=== PATIENT | male | born 1960 | race Caucasian/White ===

== ENCOUNTER 2020-12-09 07:34 | Inpatient (IN) ==
[2020-12-09] MEDS ORDERED: Isovue-370 500 ML BOTTLE IVP ONE (07:48)
[2020-12-09] MEDS ORDERED: Ipratropium/Albuterol Neb 3 ML IH ONE (07:49)
[2020-12-09 08:08] LABS: Basophils # 0.1 K/mcL (0.0-0.2); Basophils % 0.5 %; Eosinophils # 0.1 K/mcL (0.0-0.6); Hemoglobin 16.3 g/dL (12.9-16.9); Immature Granulocytes % 0.3 % (0-4); Lymphocytes # 1.9 K/mcL (0.6-4.6); Lymphocytes % 17.4 %; Mean Corpuscular HGB Conc 33.3 g/dL (31.6-35.5); Mean Corpuscular Hemoglobin 32.7 pg (28.0-33.3); Mean Corpuscular Volume 98.2 fL (83.0-100.0); Mean Platelet Volume 10.5 fL (9.4-12.4); Monocytes # 0.4 K/mcL (0.0-1.3); Monocytes % 3.8 %; Neutrophils # 8.4 K/mcL (1.6-8.9); Nucleated Red Blood Cells 0.2 /100 WBC (0); Platelet Count 292 K/mcL (140-400); Red Blood Count 4.99 M/mcL (4.19-5.50); Red Cell Distribution Width 14.8 % (11.5-14.5); White Blood Count 10.9 K/mcL (4.3-11.1)
[2020-12-09] MEDS ORDERED: 0.9 % Sodium Chloride 500 ML IVC ONE (08:26)
[2020-12-09] MEDS ORDERED: levoFLOXacin 750 MG/150 ML 750 MG/150 ML BAG IVPB ONE (08:29)
[2020-12-09 08:30] LABS: BUN/Creatinine Ratio 14 (6-26); Blood Urea Nitrogen 16 mg/dL (8-23); Calcium 9.8 mg/dL (8.6-10.3); Carbon Dioxide 21 mEq/L (23-29); Chloride 101 mEq/L (98-107); Glucose 180 mg/dL (70-105); Osmolality,Calculated 280 (280-300); Potassium 4.5 mEq/L (3.5-5.1); Sodium 132 mEq/L (136-145); Troponin I < 0.03 ng/mL (< 0.04); eGFR For African Americans > 60 (> 60); eGFR For Non-African Americans > 60 (> 60)
[2020-12-09] MEDS ORDERED: Naloxone 0.4 MG/ML INJ IVP PRN (09:42)
[2020-12-09] MEDS ORDERED: 0.9 % Sodium Chloride 1,000 ML IVC ONE (09:42)
[2020-12-09] MEDS ORDERED: Ondansetron 4 MG/2 ML VIAL IVP PRN (09:42)
[2020-12-09] MEDS ORDERED: Furosemide 20 MG/2 ML VIAL IVP ONE ×2 (10:45→19:46)
[2020-12-09] MEDS ORDERED: Perflutren Lipid Microsphere 1.3 ML in 0.9 % Sodium Chloride 8.7 ML IVP PRN (10:45)
[2020-12-09] MEDS ORDERED: hydrOXYzine pamoate 25 MG CAPSULE PO PRN (14:36)
[2020-12-09] MEDS: *HR* Rivaroxaban 10 MG TABLET PO SCH (16:11)
[2020-12-09] MEDS: Bumetanide 1 MG/4 ML VIAL IVP SCH (16:11)
[2020-12-09] MEDS ORDERED: methylPREDNISolone 125 MG/2 ML VIAL IVP ONE (16:42)
[2020-12-09] MEDS: Ipratropium/Albuterol Neb 3 ML IH SCH ×2 (18:16→20:29)
[2020-12-09] MEDS: *HR* Amiodarone 200 MG TABLET PO SCH (20:54)
[2020-12-09] MEDS: Metoprolol XL (24 HR) Succ 50 MG TAB.ER.24H PO SCH (20:54)
[2020-12-09] MEDS: MethylPREDNISolone 40 MG/ML VIAL IVP SCH (23:36)
[2020-12-10] MEDS: Ipratropium/Albuterol Neb 3 ML IH SCH ×7 (00:19→23:02)
[2020-12-10 02:31] LABS: Hemoglobin 17.6 g/dL (12.9-16.9); Mean Corpuscular HGB Conc 33.8 g/dL (31.6-35.5); Mean Corpuscular Hemoglobin 33.3 pg (28.0-33.3); Mean Corpuscular Volume 98.3 fL (83.0-100.0); Mean Platelet Volume 10.4 fL (9.4-12.4); Platelet Count 307 K/mcL (140-400); Red Blood Count 5.29 M/mcL (4.19-5.50); Red Cell Distribution Width 14.6 % (11.5-14.5); White Blood Count 7.4 K/mcL (4.3-11.1)
[2020-12-10 02:47] LABS: BUN/Creatinine Ratio 20 (6-26); Blood Urea Nitrogen 22 mg/dL (8-23); Calcium 10.3 mg/dL (8.6-10.3); Carbon Dioxide 23 mEq/L (23-29); Chloride 101 mEq/L (98-107); Glucose 163 mg/dL (70-105); Magnesium 2.2 mg/dL (1.6-2.6); Osmolality,Calculated 283 (280-300); Potassium 4.9 mEq/L (3.5-5.1); Sodium 133 mEq/L (136-145); eGFR For African Americans > 60 (> 60); eGFR For Non-African Americans > 60 (> 60)
[2020-12-10] MEDS ORDERED: *HR* Enoxaparin 40 MG/0.4 ML SYRINGE SQ SCH (07:00)
[2020-12-10] MEDS: MethylPREDNISolone 40 MG/ML VIAL IVP SCH ×3 (08:24→17:39)
[2020-12-10] MEDS: Metoprolol XL (24 HR) Succ 50 MG TAB.ER.24H PO SCH ×2 (11:05→19:47)
[2020-12-10] MEDS: *HR* Amiodarone 200 MG TABLET PO SCH ×2 (11:06→19:47)
[2020-12-10] MEDS: Spironolactone 25 MG TABLET PO SCH (11:08)
[2020-12-10] MEDS: levoFLOXacin 750 MG/150 ML 750 MG/150 ML BAG IVPB SCH (11:08)
[2020-12-10] MEDS: Bumetanide 1 MG/4 ML VIAL IVP SCH ×2 (11:18→17:39)
[2020-12-10] MEDS: Acetaminophen 325 MG TABLET PO PRN ×2 (11:45→21:06)
[2020-12-10 15:50] LABS: ABG Base Excess 0 mEq/L (-2 to 3); ABG HCO3 24 mEq/L (21-27); ABG Oxygen Saturation 97 % (95-98); ABG PCO2 37 mmHg (35-45); ABG PH 7.42 pH Units (7.32-7.45); ABG PO2 89 mmHg (85-104); ABG TCO2 25 mEq/L (20-26)
[2020-12-10] MEDS: *HR* Rivaroxaban 10 MG TABLET PO SCH (17:39)
[2020-12-10] MEDS ORDERED: Ibuprofen 400 MG TABLET PO PRN (22:34)
[2020-12-11] MEDS: MethylPREDNISolone 40 MG/ML VIAL IVP SCH ×4 (00:09→23:14)
[2020-12-11] MEDS: Ipratropium/Albuterol Neb 3 ML IH SCH ×6 (04:03→23:19)
[2020-12-11 08:37] LABS: Basophils % 0.1 %; Hematocrit 51.1 % (37.5-50.1); Hemoglobin 17.2 g/dL (12.9-16.9); Immature Granulocytes % 0.6 % (0-4); Lymphocytes # 1.1 K/mcL (0.6-4.6); Lymphocytes % 6.4 %; Mean Corpuscular HGB Conc 33.7 g/dL (31.6-35.5); Mean Corpuscular Hemoglobin 33.4 pg (28.0-33.3); Mean Corpuscular Volume 99.2 fL (83.0-100.0); Mean Platelet Volume 10.7 fL (9.4-12.4); Monocytes # 0.5 K/mcL (0.0-1.3); Neutrophils # 15.2 K/mcL (1.6-8.9); Platelet Count 361 K/mcL (140-400); Red Blood Count 5.15 M/mcL (4.19-5.50); Red Cell Distribution Width 14.6 % (11.5-14.5); Segmented Neutrophils % 89.9 %
[2020-12-11 08:41] LABS: White Blood Count 16.9 K/mcL (4.3-11.1)
[2020-12-11] MEDS: Bumetanide 1 MG/4 ML VIAL IVP SCH ×2 (08:52→17:17)
[2020-12-11] MEDS: *HR* Amiodarone 200 MG TABLET PO SCH ×2 (08:53→20:26)
[2020-12-11] MEDS: Acetaminophen 325 MG TABLET PO PRN (08:54)
[2020-12-11] MEDS: Metoprolol XL (24 HR) Succ 50 MG TAB.ER.24H PO SCH ×2 (08:54→20:24)
[2020-12-11] MEDS: Spironolactone 25 MG TABLET PO SCH (08:54)
[2020-12-11 09:23] LABS: BUN/Creatinine Ratio 34 (6-26); Blood Urea Nitrogen 34 mg/dL (8-23); Calcium 10.6 mg/dL (8.6-10.3); Carbon Dioxide 23 mEq/L (23-29); Chloride 102 mEq/L (98-107); Glucose 133 mg/dL (70-105); Magnesium 2.2 mg/dL (1.6-2.6); Osmolality,Calculated 288 (280-300); Phosphorous 3.6 mg/dL (2.7-4.5); Potassium 4.5 mEq/L (3.5-5.1); Sodium 134 mEq/L (136-145); eGFR For African Americans > 60 (> 60); eGFR For Non-African Americans > 60 (> 60)
[2020-12-11] MEDS: levoFLOXacin 750 MG/150 ML 750 MG/150 ML BAG IVPB SCH (10:40)
[2020-12-11] MEDS: *HR* Rivaroxaban 10 MG TABLET PO SCH (17:17)
[2020-12-11] MEDS ORDERED: Sennosides/Docusate Sodium TABLET PO PRN (17:29)
[2020-12-12] MEDS: Ipratropium/Albuterol Neb 3 ML IH SCH ×6 (03:24→23:33)
[2020-12-12 03:41] LABS: Basophils % 0.1 %; Hematocrit 50.7 % (37.5-50.1); Hemoglobin 16.3 g/dL (12.9-16.9); Immature Granulocytes % 0.4 % (0-4); Lymphocytes # 0.7 K/mcL (0.6-4.6); Lymphocytes % 5.6 %; Mean Corpuscular HGB Conc 32.1 g/dL (31.6-35.5); Mean Corpuscular Hemoglobin 32.3 pg (28.0-33.3); Mean Corpuscular Volume 100.6 fL (83.0-100.0); Mean Platelet Volume 11.4 fL (9.4-12.4); Monocytes # 0.5 K/mcL (0.0-1.3); Monocytes % 3.7 %; Neutrophils # 11.2 K/mcL (1.6-8.9); Platelet Count 292 K/mcL (140-400); Red Blood Count 5.04 M/mcL (4.19-5.50); Red Cell Distribution Width 14.8 % (11.5-14.5); Segmented Neutrophils % 90.2 %; White Blood Count 12.4 K/mcL (4.3-11.1)
[2020-12-12 04:05] LABS: BUN/Creatinine Ratio 38 (6-26); Blood Urea Nitrogen 38 mg/dL (8-23); Calcium 10.5 mg/dL (8.6-10.3); Carbon Dioxide 24 mEq/L (23-29); Chloride 103 mEq/L (98-107); Glucose 182 mg/dL (70-105); Magnesium 2.1 mg/dL (1.6-2.6); Osmolality,Calculated 294 (280-300); Phosphorous 3.2 mg/dL (2.7-4.5); Potassium 4.4 mEq/L (3.5-5.1); Sodium 135 mEq/L (136-145); eGFR For African Americans > 60 (> 60); eGFR For Non-African Americans > 60 (> 60)
[2020-12-12] MEDS: *HR* Amiodarone 200 MG TABLET PO SCH ×2 (09:37→21:43)
[2020-12-12] MEDS: Bumetanide 1 MG/4 ML VIAL IVP SCH ×2 (09:38→17:16)
[2020-12-12] MEDS: Spironolactone 25 MG TABLET PO SCH (09:38)
[2020-12-12] MEDS: levoFLOXacin 750 MG/150 ML 750 MG/150 ML BAG IVPB SCH (09:38)
[2020-12-12] MEDS: Metoprolol XL (24 HR) Succ 50 MG TAB.ER.24H PO SCH ×2 (09:38→21:42)
[2020-12-12] MEDS: MethylPREDNISolone 40 MG/ML VIAL IVP SCH ×2 (09:40→17:16)
[2020-12-12] MEDS: *HR* Rivaroxaban 10 MG TABLET PO SCH (17:17)
[2020-12-13] MEDS: MethylPREDNISolone 40 MG/ML VIAL IVP SCH ×3 (00:28→17:19)
[2020-12-13] MEDS: Ipratropium/Albuterol Neb 3 ML IH SCH ×6 (03:22→23:30)
[2020-12-13 03:32] LABS: Hematocrit 51.6 % (37.5-50.1); Hemoglobin 17.2 g/dL (12.9-16.9); Immature Granulocytes % 0.6 % (0-4); Lymphocytes # 0.7 K/mcL (0.6-4.6); Lymphocytes % 7.7 %; Mean Corpuscular HGB Conc 33.3 g/dL (31.6-35.5); Mean Corpuscular Hemoglobin 33.1 pg (28.0-33.3); Mean Corpuscular Volume 99.2 fL (83.0-100.0); Mean Platelet Volume 10.7 fL (9.4-12.4); Monocytes # 0.8 K/mcL (0.0-1.3); Monocytes % 8.2 %; Neutrophils # 7.9 K/mcL (1.6-8.9); Platelet Count 356 K/mcL (140-400); Red Cell Distribution Width 14.6 % (11.5-14.5); Segmented Neutrophils % 83.5 %; White Blood Count 9.4 K/mcL (4.3-11.1)
[2020-12-13 03:50] LABS: BUN/Creatinine Ratio 30 (6-26); Blood Urea Nitrogen 30 mg/dL (8-23); Calcium 10.8 mg/dL (8.6-10.3); Carbon Dioxide 26 mEq/L (23-29); Chloride 101 mEq/L (98-107); Glucose 126 mg/dL (70-105); Magnesium 2.2 mg/dL (1.6-2.6); Osmolality,Calculated 284 (280-300); Phosphorous 2.9 mg/dL (2.7-4.5); Potassium 5.2 mEq/L (3.5-5.1); Sodium 133 mEq/L (136-145); eGFR For African Americans > 60 (> 60); eGFR For Non-African Americans > 60 (> 60)
[2020-12-13] MEDS: Bumetanide 1 MG/4 ML VIAL IVP SCH ×2 (08:26→17:19)
[2020-12-13] MEDS: Metoprolol XL (24 HR) Succ 50 MG TAB.ER.24H PO SCH ×2 (08:26→20:03)
[2020-12-13] MEDS: *HR* Amiodarone 200 MG TABLET PO SCH ×2 (08:27→20:03)
[2020-12-13] MEDS: levoFLOXacin 750 MG/150 ML 750 MG/150 ML BAG IVPB SCH (08:27)
[2020-12-13] MEDS: Spironolactone 25 MG TABLET PO SCH (08:27)
[2020-12-13] MEDS: Acetaminophen 325 MG TABLET PO PRN (10:56)
[2020-12-13] MEDS: *HR* Rivaroxaban 10 MG TABLET PO SCH (17:20)
[2020-12-14] MEDS: MethylPREDNISolone 40 MG/ML VIAL IVP SCH ×2 (00:37→08:10)
[2020-12-14] MEDS: Ipratropium/Albuterol Neb 3 ML IH SCH ×2 (03:41→07:48)
[2020-12-14] MEDS: Acetaminophen 325 MG TABLET PO PRN (03:52)
[2020-12-14 05:23] LABS: Basophils % 0.1 %; Hematocrit 50.1 % (37.5-50.1); Hemoglobin 16.9 g/dL (12.9-16.9); Immature Granulocytes % 0.3 % (0-4); Lymphocytes # 0.8 K/mcL (0.6-4.6); Lymphocytes % 8.7 %; Mean Corpuscular HGB Conc 33.7 g/dL (31.6-35.5); Mean Corpuscular Hemoglobin 33.2 pg (28.0-33.3); Mean Corpuscular Volume 98.4 fL (83.0-100.0); Mean Platelet Volume 10.6 fL (9.4-12.4); Monocytes # 0.3 K/mcL (0.0-1.3); Monocytes % 3.7 %; Neutrophils # 7.8 K/mcL (1.6-8.9); Platelet Count 346 K/mcL (140-400); Red Blood Count 5.09 M/mcL (4.19-5.50); Red Cell Distribution Width 14.3 % (11.5-14.5); Segmented Neutrophils % 87.2 %; White Blood Count 8.9 K/mcL (4.3-11.1)
[2020-12-14 05:45] LABS: BUN/Creatinine Ratio 35 (6-26); Blood Urea Nitrogen 34 mg/dL (8-23); Calcium 10.4 mg/dL (8.6-10.3); Carbon Dioxide 30 mEq/L (23-29); Chloride 98 mEq/L (98-107); Glucose 132 mg/dL (70-105); Magnesium 2.2 mg/dL (1.6-2.6); Osmolality,Calculated 287 (280-300); Phosphorous 3.4 mg/dL (2.7-4.5); Potassium 4.3 mEq/L (3.5-5.1); Sodium 134 mEq/L (136-145); eGFR For African Americans > 60 (> 60); eGFR For Non-African Americans > 60 (> 60)
[2020-12-14 06:39] VITALS: BP 103/68
[2020-12-14] MEDS: Bumetanide 1 MG/4 ML VIAL IVP SCH (08:10)
[2020-12-14] MEDS: *HR* Amiodarone 200 MG TABLET PO SCH (08:11)
[2020-12-14] MEDS: Spironolactone 25 MG TABLET PO SCH (08:11)
[2020-12-14] MEDS: Metoprolol XL (24 HR) Succ 50 MG TAB.ER.24H PO SCH (08:11)
[2020-12-14] MEDS ORDERED: levoFLOXacin 750 MG TABLET PO SCH (09:00)
== END 2020-12-14 10:38 | disposition home or self-care (01) | DRG 871 ==
LOC: 2ANU 07:34 → EMEROOARM 07:34 → 2ANU 12:03
PROVIDERS: ADMIT Internal Medicine; ATTEND Internal Medicine

== ENCOUNTER 2021-08-29 20:29 | Inpatient (IN) ==
[2021-08-29 20:58] LABS: Basophils % 0.4 %; Eosinophils # 0.1 K/mcL (0.0-0.6); Eosinophils % 1.1 %; Hematocrit 54.2 % (37.5-50.1); Immature Granulocytes % 0.1 % (0-4); Lymphocytes # 2.9 K/mcL (0.6-4.6); Lymphocytes % 35.4 %; Mean Corpuscular HGB Conc 33.2 g/dL (31.6-35.5); Mean Corpuscular Hemoglobin 32.8 pg (28.0-33.3); Mean Corpuscular Volume 98.7 fL (83.0-100.0); Mean Platelet Volume 11.7 fL (9.4-12.4); Monocytes # 0.6 K/mcL (0.0-1.3); Monocytes % 6.8 %; Neutrophils # 4.5 K/mcL (1.6-8.9); Platelet Count 172 K/mcL (140-400); Red Blood Count 5.49 M/mcL (4.19-5.50); Segmented Neutrophils % 56.2 %; White Blood Count 8.1 K/mcL (4.3-11.1)
[2021-08-29 21:20] LABS: BUN/Creatinine Ratio 17 (6-26); Blood Urea Nitrogen 14 mg/dL (8-23); Calcium 9.8 mg/dL (8.6-10.3); Carbon Dioxide 22 mEq/L (23-29); Chloride 104 mEq/L (98-107); Glucose 174 mg/dL (70-105); Magnesium 1.7 mg/dL (1.6-2.6); Osmolality,Calculated 287 (280-300); Phosphorous 1.7 mg/dL (2.7-4.5); Potassium 3.8 mEq/L (3.5-5.1); Sodium 136 mEq/L (136-145); eGFR For African Americans > 60 (> 60); eGFR For Non-African Americans > 60 (> 60)
[2021-08-29 21:23] LABS: Troponin I 0.07 ng/mL (< 0.04)
[2021-08-29] MEDS ORDERED: Potassium Phosphate 44 MEQ in 0.9 % Sodium Chloride 250 ML IVPB ONE (21:23)
[2021-08-29] MEDS ORDERED: Ondansetron 4 MG/2 ML VIAL IVP PRN (22:21)
[2021-08-29] MEDS ORDERED: Naloxone 0.4 MG/ML INJ IVP PRN (22:21)
[2021-08-29] MEDS: Melatonin 3 MG TABLET PO PRN (23:29)
[2021-08-29] MEDS: Acetaminophen 325 MG TABLET PO PRN (23:29)
[2021-08-30 02:03] LABS: Basophils # 0.1 K/mcL (0.0-0.2); Basophils % 0.8 %; Eosinophils # 0.2 K/mcL (0.0-0.6); Eosinophils % 1.9 %; Hematocrit 52.6 % (37.5-50.1); Hemoglobin 17.9 g/dL (12.9-16.9); Immature Granulocytes % 0.2 % (0-4); Lymphocytes % 43.7 %; Mean Corpuscular Hemoglobin 33.4 pg (28.0-33.3); Mean Corpuscular Volume 98.1 fL (83.0-100.0); Mean Platelet Volume 11.5 fL (9.4-12.4); Monocytes # 0.9 K/mcL (0.0-1.3); Monocytes % 9.5 %; Platelet Count 171 K/mcL (140-400); Red Blood Count 5.36 M/mcL (4.19-5.50); Red Cell Distribution Width 13.1 % (11.5-14.5); Segmented Neutrophils % 43.9 %; White Blood Count 9.2 K/mcL (4.3-11.1)
[2021-08-30 02:32] LABS: Alanine Aminotransferase 20 Units/L (7-52); Albumin 3.5 g/dL (3.5-5.7); Albumin/Globulin Ratio 1.4 (1.1-2.2); Alkaline Phosphatase 64 Units/L (34-104); Aspartate Amino Transferase 22 Units/L (13-39); BUN/Creatinine Ratio 17 (6-26); Bilirubin,Total 0.8 mg/dL (0.3-1.0); Blood Urea Nitrogen 14 mg/dL (8-23); Calcium 9.7 mg/dL (8.6-10.3); Carbon Dioxide 22 mEq/L (23-29); Chloride 106 mEq/L (98-107); Globulin 2.5 g/dL (2.4-3.5); Glucose 85 mg/dL (70-105); Magnesium 1.8 mg/dL (1.6-2.6); Osmolality,Calculated 284 (280-300); Phosphorous 4.5 mg/dL (2.7-4.5); Potassium 4.2 mEq/L (3.5-5.1); Sodium 137 mEq/L (136-145); eGFR For African Americans > 60 (> 60); eGFR For Non-African Americans > 60 (> 60)
[2021-08-30] MEDS ORDERED: *HR* Heparin 5,000 UNIT/ML VIAL IVP PRN ×2 (02:42)
[2021-08-30] MEDS ORDERED: Heparin 25,000UNIT/250ML 1/2NS 25,000 UNIT/250 ML IV.SOLN IVC SCH (02:45)
[2021-08-30 03:41] LABS: INR 2.2; Prothrombin Time 24.2 Seconds (9.4-12.1)
[2021-08-30 03:44] LABS: Activated Partial Thrombo Time 43.1 Seconds (26.0-36.0)
[2021-08-30] MEDS: Heparin 25,000UNIT/250ML 1/2NS 25,000 UNIT/250 ML IV.SOLN IVC SCH (03:51)
[2021-08-30] MEDS ORDERED: Perflutren Lipid Microsphere 1.3 ML in 0.9 % Sodium Chloride 8.7 ML IVP PRN (08:59)
[2021-08-30] MEDS ORDERED: *HR* Rivaroxaban 10 MG TABLET PO SCH (09:00)
[2021-08-30 11:05] LABS: Estimated Average Glucose 120 mg/dl; Hemoglobin A1C 5.8 %
[2021-08-30] MEDS: Furosemide 40 MG/4 ML VIAL IVP SCH ×2 (11:36→20:40)
[2021-08-30] MEDS: Metoprolol XL (24 HR) Succ 50 MG TAB.ER.24H PO SCH (14:09)
[2021-08-30] MEDS: Melatonin 3 MG TABLET PO PRN (20:32)
[2021-08-31] MEDS: Heparin 25,000UNIT/250ML 1/2NS 25,000 UNIT/250 ML IV.SOLN IVC SCH ×2 (00:08→18:21)
[2021-08-31] MEDS: Metoprolol XL (24 HR) Succ 50 MG TAB.ER.24H PO SCH ×3 (00:11→20:04)
[2021-08-31] MEDS: Furosemide 40 MG/4 ML VIAL IVP SCH ×2 (08:02→20:04)
[2021-08-31 17:04] LABS: BUN/Creatinine Ratio 20 (6-26); Blood Urea Nitrogen 18 mg/dL (8-23); Calcium 10.5 mg/dL (8.6-10.3); Carbon Dioxide 21 mEq/L (23-29); Chloride 104 mEq/L (98-107); Glucose 92 mg/dL (70-105); Osmolality,Calculated 284 (280-300); Potassium 4.2 mEq/L (3.5-5.1); Sodium 136 mEq/L (136-145); eGFR For African Americans > 60 (> 60); eGFR For Non-African Americans > 60 (> 60)
[2021-08-31 17:06] LABS: Basophils # 0.1 K/mcL (0.0-0.2); Basophils % 0.6 %; Eosinophils # 0.2 K/mcL (0.0-0.6); Eosinophils % 2.1 %; Hemoglobin 19.3 g/dL (12.9-16.9); Immature Granulocytes % 0.2 % (0-4); Lymphocytes # 5.3 K/mcL (0.6-4.6); Lymphocytes % 52.4 %; Mean Corpuscular HGB Conc 32.8 g/dL (31.6-35.5); Mean Corpuscular Hemoglobin 32.7 pg (28.0-33.3); Mean Corpuscular Volume 99.7 fL (83.0-100.0); Mean Platelet Volume 12.1 fL (9.4-12.4); Monocytes # 0.9 K/mcL (0.0-1.3); Monocytes % 8.6 %; Neutrophils # 3.7 K/mcL (1.6-8.9); Platelet Count 167 K/mcL (140-400); Red Cell Distribution Width 13.2 % (11.5-14.5); Segmented Neutrophils % 36.1 %; White Blood Count 10.2 K/mcL (4.3-11.1)
[2021-08-31 17:08] LABS: Hematocrit 58.8 % (37.5-50.1)
[2021-09-01] MEDS ORDERED: Mag Hydrox/Al Hydrox/Simeth 30 ML UDC PO ONE (00:02)
[2021-09-01] MEDS: Melatonin 3 MG TABLET PO PRN ×2 (01:52→21:57)
[2021-09-01 02:43] LABS: BUN/Creatinine Ratio 22 (6-26); Blood Urea Nitrogen 21 mg/dL (8-23); Calcium 10.9 mg/dL (8.6-10.3); Carbon Dioxide 25 mEq/L (23-29); Chloride 102 mEq/L (98-107); Glucose 105 mg/dL (70-105); Magnesium 1.9 mg/dL (1.6-2.6); Osmolality,Calculated 289 (280-300); Potassium 3.9 mEq/L (3.5-5.1); Sodium 138 mEq/L (136-145); eGFR For African Americans > 60 (> 60); eGFR For Non-African Americans > 60 (> 60)
[2021-09-01] MEDS: Furosemide 40 MG/4 ML VIAL IVP SCH ×2 (07:49→19:30)
[2021-09-01] MEDS: Metoprolol XL (24 HR) Succ 50 MG TAB.ER.24H PO SCH ×2 (07:49→19:30)
[2021-09-01] MEDS: Heparin 25,000UNIT/250ML 1/2NS 25,000 UNIT/250 ML IV.SOLN IVC SCH (15:57)
[2021-09-01] MEDS: Acetaminophen 325 MG TABLET PO PRN ×2 (16:42→21:58)
[2021-09-01] MEDS ORDERED: *HR* Rivaroxaban 10 MG TABLET PO SCH (17:00)
[2021-09-02] MEDS: Metoprolol XL (24 HR) Succ 50 MG TAB.ER.24H PO SCH (08:36)
[2021-09-02] MEDS: Furosemide 40 MG/4 ML VIAL IVP SCH (08:37)
[2021-09-02 10:08] VITALS: BP 105/73; PULSE 70; TEMP 97.6; O2SAT 99
[2021-09-02] MEDS ORDERED: Furosemide Oral Soln 40 MG/4 ML UDC PO SCH (12:30)
== END 2021-09-02 14:51 | disposition home or self-care (01) | DRG 280 ==
LOC: EMEROOARM 20:29 → 2NENU 20:29 → SUATTDRO 22:16 → 2NENU 22:43
PROVIDERS: ADMIT Internal Medicine; ATTEND Internal Medicine

== ENCOUNTER 2022-01-13 21:58 | Observation (INO) ==
[2022-01-14] MEDS ORDERED: Naloxone 0.4 MG/ML INJ IVP PRN (02:56)
[2022-01-14] MEDS ORDERED: Acetaminophen 325 MG TABLET PO PRN (02:56)
[2022-01-14] MEDS ORDERED: Melatonin 3 MG TABLET PO PRN (02:56)
[2022-01-14] MEDS ORDERED: Ondansetron 4 MG/2 ML VIAL IVP PRN (02:56)
[2022-01-14 04:23] LABS: Basophils % 0.5 %; Eosinophils # 0.2 K/mcL (0.0-0.6); Eosinophils % 2.5 %; Hematocrit 49.1 % (37.5-50.1); Hemoglobin 16.3 g/dL (12.9-16.9); Immature Granulocytes % 0.4 % (0-4); Lymphocytes # 3.4 K/mcL (0.6-4.6); Lymphocytes % 41.5 %; Mean Corpuscular HGB Conc 33.2 g/dL (31.6-35.5); Mean Corpuscular Hemoglobin 32.7 pg (28.0-33.3); Mean Corpuscular Volume 98.4 fL (83.0-100.0); Mean Platelet Volume 11.3 fL (9.4-12.4); Monocytes # 0.7 K/mcL (0.0-1.3); Monocytes % 8.4 %; Neutrophils # 3.9 K/mcL (1.6-8.9); Platelet Count 177 K/mcL (140-400); Red Blood Count 4.99 M/mcL (4.19-5.50); Red Cell Distribution Width 13.6 % (11.5-14.5); Segmented Neutrophils % 46.7 %; White Blood Count 8.3 K/mcL (4.3-11.1)
[2022-01-14 04:32] LABS: INR 1.2; Prothrombin Time 13.9 Seconds (9.4-12.1)
[2022-01-14 04:54] LABS: Alanine Aminotransferase 23 Units/L (7-52); Albumin 3.5 g/dL (3.5-5.7); Albumin/Globulin Ratio 1.2 (1.1-2.2); Alkaline Phosphatase 57 Units/L (34-104); Aspartate Amino Transferase 28 Units/L (13-39); BUN/Creatinine Ratio 16 (6-26); Bilirubin,Total 0.6 mg/dL (0.3-1.0); Blood Urea Nitrogen 13 mg/dL (8-23); Calcium 9.6 mg/dL (8.6-10.3); Carbon Dioxide 25 mEq/L (23-29); Chloride 108 mEq/L (98-107); Globulin 2.9 g/dL (2.4-3.5); Glucose 91 mg/dL (70-105); Magnesium 1.9 mg/dL (1.6-2.6); Osmolality,Calculated 288 (280-300); Phosphorous 2.5 mg/dL (2.7-4.5); Potassium 3.9 mEq/L (3.5-5.1); Sodium 139 mEq/L (136-145); Total Protein 6.4 g/dL (6.4-8.9); Troponin I 0.43 ng/mL (< 0.04); eGFR For African Americans > 60 (> 60); eGFR For Non-African Americans > 60 (> 60)
[2022-01-14] MEDS ORDERED: *HR* Heparin 5,000 UNIT/ML VIAL IVP ONE (06:22)
[2022-01-14] MEDS ORDERED: *HR* Heparin 5,000 UNIT/ML VIAL IVP PRN ×2 (06:22)
[2022-01-14] MEDS: Heparin 25,000UNIT/250ML 1/2NS 25,000 UNIT/250 ML IV.SOLN IVC SCH (08:57)
[2022-01-14] MEDS ORDERED: Furosemide 40 MG TABLET PO SCH (10:00)
[2022-01-14] MEDS: Aspirin 81 MG TAB.CHEW PO SCH (11:19)
[2022-01-14] MEDS: Metoprolol XL (24 HR) Succ 50 MG TAB.ER.24H PO SCH ×2 (11:19→19:41)
[2022-01-14] MEDS ORDERED: Perflutren Lipid Microsphere 1.3 ML in 0.9 % Sodium Chloride 8.7 ML IVP PRN (14:48)
[2022-01-14] MEDS ORDERED: Thiamine (B-1) 100 MG, Folic Acid 1 MG, MVI, adult with vitamin K 10 ML in 0.9 % Sodi... IVPB SCH (18:00)
[2022-01-14] MEDS: Furosemide 40 MG/4 ML VIAL IVP SCH (19:40)
[2022-01-14] MEDS: Spironolactone 25 MG TABLET PO SCH (19:41)
[2022-01-15] MEDS: Furosemide 40 MG/4 ML VIAL IVP SCH (04:39)
[2022-01-15 05:22] LABS: BUN/Creatinine Ratio 19 (6-26); Blood Urea Nitrogen 17 mg/dL (8-23); Calcium 9.6 mg/dL (8.6-10.3); Carbon Dioxide 27 mEq/L (23-29); Chloride 105 mEq/L (98-107); Glucose 96 mg/dL (70-105); Magnesium 1.7 mg/dL (1.6-2.6); Osmolality,Calculated 287 (280-300); Potassium 3.9 mEq/L (3.5-5.1); Sodium 138 mEq/L (136-145); eGFR For African Americans > 60 (> 60); eGFR For Non-African Americans > 60 (> 60)
[2022-01-15] MEDS: Heparin 25,000UNIT/250ML 1/2NS 25,000 UNIT/250 ML IV.SOLN IVC SCH (08:25)
[2022-01-15] MEDS: Aspirin 81 MG TAB.CHEW PO SCH (09:58)
[2022-01-15] MEDS: Spironolactone 25 MG TABLET PO SCH (09:58)
[2022-01-15] MEDS: Metoprolol XL (24 HR) Succ 50 MG TAB.ER.24H PO SCH (09:58)
[2022-01-15 10:29] VITALS: BP 103/53; PULSE 83; TEMP 97.5; O2SAT 95
[2022-01-15] MEDS ORDERED: methylPREDNISolone 125 MG/2 ML VIAL IVP ONE (10:34)
[2022-01-15] MEDS ORDERED: levoFLOXacin 500 MG/100 ML 500 MG/100 ML BAG IVPB SCH (10:45)
[2022-01-15] MEDS ORDERED: Ciprofloxacin/Dex *EAR* Susp 7.5 ML BOTTLE BOTH EARS SCH (10:45)
[2022-01-15] MEDS ORDERED: Ciprofloxacin HCL Soln 5 ML BOTTLE RIGHT EYE SCH (12:00)
[2022-01-15] MEDS ORDERED: Ciprofloxacin HCL Soln 5 ML BOTTLE LEFT EYE SCH (12:00)
[2022-01-15] MEDS ORDERED: lisinopriL 10 MG TABLET PO SCH (12:15)
[2022-01-15] MEDS ORDERED: *HR* Rivaroxaban 10 MG TABLET PO SCH (12:45)
[2022-01-15] MEDS ORDERED: Furosemide 40 MG TABLET PO SCH (17:00)
== END 2022-01-15 13:35 | disposition home or self-care (01) ==
LOC: 3BNU → SUATTDRO 01-14 02:33
PROVIDERS: ADMIT Internal Medicine; ATTEND Registered Nurse